=== PATIENT | female | born 1960 | race Caucasian/White ===

== ENCOUNTER 2021-06-25 14:00 | Day surgery (SDC) | payer BC ==
[~2021-06-25] VITALS: Ht 167.6 cm; Wt 80.4 kg
[2021-06-25] VITALS (7 sets, daily range): BP systolic 98–136; BP diastolic 51–75
[2021-06-25] MEDS ORDERED: diphenhydrAMINE 25mg capsule PO PRN (14:25)
[2021-06-25] MEDS ORDERED: normal saline 1,000 ML IV SCH (14:25)
[2021-06-25] MEDS ORDERED: LORazepam 0.5 MG tablet PO PRN (14:25)
[2021-06-25] MEDS ORDERED: SITA100T11 PO (14:35)
[2021-06-25] MEDS ORDERED: INSU100I31 (14:35)
[2021-06-25] MEDS ORDERED: CLOP75TA15 PO (14:35)
[2021-06-25] MEDS ORDERED: IBUP-2697 PO (14:35)
[2021-06-25] MEDS ORDERED: METF-438 PO (14:35)
[2021-06-25] MEDS ORDERED: ATOR80TA PO (14:35)
[2021-06-25] MEDS ORDERED: LISI-643 PO (14:35)
[2021-06-25] MEDS ORDERED: fentaNYL/PF 50MCG/1 ML 2ML syringe ONE (15:46)
[2021-06-25] MEDS ORDERED: LIDOcaine 1% (10mg/ml)w/preservative inj. 20ml MDV ONE (15:46)
[2021-06-25] MEDS ORDERED: heparin 1,000unit/ml 10ml vial 10 ML ONE (15:46)
[2021-06-25] MEDS ORDERED: midazolam 1 mg/ML 2ml injection ONE ×2 (15:46→17:36)
[2021-06-25] MEDS ORDERED: iohexol 350MG/ML 100ml bottle IV ONE ×2 (15:47→17:37)
[2021-06-25] MEDS ORDERED: heparin 1,000 UNITS/NS 500ml 500 ML ONE (15:47)
[2021-06-25] MEDS ORDERED: aspirin 325mg tablet ONE (18:36)
[2021-06-25] MEDS ORDERED: OXAZEpam 15mg capsule PO PRN (19:15)
[2021-06-25] MEDS ORDERED: HYDROcodone/acetaminophen 10/325mg tab PO PRN (19:15)
[2021-06-25] MEDS ORDERED: ondansetron/PF 4mg/2ml inj IV PRN (19:15)
[2021-06-25] MEDS ORDERED: proCHLORperazine 10 MG/2 ml inj IV PRN (19:15)
[2021-06-25] MEDS ORDERED: HYDROcodone/acetaminophen 5mg/325mg tablet PO PRN (19:15)
== END 2021-06-25 21:00 | disposition home or self-care (01) ==
LOC: SSTAY O 14:00
PROVIDERS: ATTEND Internal Medicine Interventional Cardiology
DX: E11.51 Type 2 diabetes mellitus with diabetic peripheral angiopathy without gangrene (principal); I70.211 Atherosclerosis of native arteries of extremities with intermittent claudication, right leg; I10 Essential (primary) hypertension; E78.5 Hyperlipidemia, unspecified; F17.290 Nicotine dependence, other tobacco product, uncomplicated; Z88.7 Allergy status to serum and vaccine; Z79.84 Long term (current) use of oral hypoglycemic drugs; Z79.01 Long term (current) use of anticoagulants; Z79.899 Other long term (current) drug therapy
CPT/HCPCS: 37221; 75625; 75710; 93005; 99152; 99153; C1725; C1751; C1769; C1876; C1887; C1894; J1644; J2250; J3010; J3490; Q0163; Q9967; 36140; A4620; A6449

== ENCOUNTER 2025-03-23 09:42 | Observation (INO) | payer BC ==
[2025-03-23] VITALS (12 sets, daily range): BP systolic 93–148; BP diastolic 60–77; PULSE 81–102; RESP 8–24; TEMP 98.2–98.9; O2SAT 94–100
[~2025-03-23] VITALS: Ht 167.6 cm; Wt 77.0 kg
[~2025-03-23 09:42] MED LIST: ATOR-429 PO; CLOP75TA15 PO; IBUP-2697 PO; INSU100I31; LISI-643 PO; METF-438 PO; SITA100T11 PO
[2025-03-23] MEDS ORDERED: GABA300C PO (10:22)
[2025-03-23] MEDS ORDERED: SEMA2PEN INJ (10:22)
[2025-03-23] MEDS ORDERED: ASPI81TA52 PO (10:23)
[2025-03-23] MEDS ORDERED: DAPA10TA PO (10:24)
--- NOTE | 2025-03-23 10:33 | ELECTROCARDIOGRAPH REPORT ---
[facility] Test Date: 2025-03-23 Test Time: 10:31:30 Pat Name: RHONA COCHRAN Department: [facility] Patient ID: [facility]-[id number] Room: Gender: F Svp Of Digital: RAYSHAWN : 1960 Requested By: DARINEL TORREZ Order Number: [id number] Reading MD: Dr. Tigre Yuen Measurements Intervals [place] Rate: 80 P: 59 [place]: 141 QRS: 79 QRSD: 99 T: 60 QT: 372 QTc: 430 Interpretive Statements Sinus rhythm Electronically Signed On 03-23-2025 16:31:[address] Tigre Yuen Please click the below link to view image of tracing.
[2025-03-23] MEDS ORDERED: glucagon, human recombinant 1mg kit SUBCUT PRN (10:40)
[2025-03-23] MEDS ORDERED: dextrose 50%-water 50ml dispensing syringe IV PRN ×2 (10:40)
[2025-03-23] MEDS ORDERED: DEXTROSE 15 GM of carb/4 tabs (each vial/BOTTLE has 4 tablets) PO PRN ×2 (10:40)
[2025-03-23] MEDS ORDERED: normal saline 1000ml 1,000 ML IV SCH (11:05)
--- NOTE | 2025-03-23 11:22 | RADIOLOGY REPORT ---
CLINICAL INFORMATION: PREOP HEART CATH. TECHNIQUE: Frontal and lateral chest radiographs were obtained. COMPARISON: None FINDINGS: Lungs: Mild atelectasis in the lung bases. No focal consolidation. No pneumothorax or pleural effusion. Cardiac: Heart size is within normal limits. Pulmonary vasculature: Unremarkable Mediastinum/lyn: Within normal limits. Bones: No evidence of acute osseous abnormality. Other: No other significant finding. IMPRESSION: No evidence of acute disease in the chest.
[2025-03-23] MEDS ORDERED: iohexol 350 MG/ML 50ML vial IV ONE (12:43)
[2025-03-23] MEDS ORDERED: verapamil 2.5 mg/ml inj IV ONE (12:43)
[2025-03-23] MEDS ORDERED: LIDOcaine 1% 30ml preserv. free vial ONE (12:43)
[2025-03-23] MEDS ORDERED: fentaNYL/PF 50MCG/1 ML 2ML syringe ONE (12:43)
[2025-03-23] MEDS ORDERED: heparin 1,000unit/ml 10ml vial 10 ML ONE (12:43)
[2025-03-23] MEDS ORDERED: midazolam 1 mg/ML 2ml injection ONE (12:43)
[2025-03-23] MEDS ORDERED: nitroGLYCERIN 500mcg/5mL D5W 5 ML IV ONE (12:49)
[2025-03-23 13:46] LABS: MEAN PLATELET VOLUME 7.9 FL (7.4-10.4); RED CELL DISTRIBUTION WIDTH 13.6 % (11.5-14.5)
[2025-03-23 14:39] LABS: APTT 25 SECONDS (22-32); INR 1.0 INR
[2025-03-23 15:02] LABS: CREATININE 0.93 MG/DL (0.40-0.90); PRO BRAIN NATRIURETIC PEPTIDE 36 PG/ML (0-125); TOTAL CARBON DIOXIDE 29.5 MMOL/L (24-32); eCRCL 57 ML/MIN; eGFR 61 ML/MIN
[2025-03-23] MEDS ORDERED: ondansetron/PF 4mg/2ml inj IV PRN (16:45)
[2025-03-23] MEDS: normal saline 1000ml 1,000 ML IV SCH (16:45)
[2025-03-23] MEDS ORDERED: HYDROcodone/acetaminophen 5mg/325mg tablet PO PRN (16:50)
[2025-03-23] MEDS ORDERED: HYDROcodone/acetaminophen 10/325mg tab PO PRN (16:50)
[2025-03-23] MEDS ORDERED: OXAZEpam 15mg capsule PO PRN (16:50)
[2025-03-23] MEDS: INSULIN LISPRO 100 UNIT/ML INSULN.PEN MULTI-DOSE SQ SCH (22:03)
[2025-03-24 02:00] VITALS: BP 121/69; PULSE 93; RESP 19; TEMP 98.9; O2SAT 98
--- NOTE | 2025-03-24 02:26 | CARDIOLOGY REPORT ---
DATE OF SERVICE: 03/23/2025 DICTATING PHYSICIAN: Priyank Paredes MD PROCEDURES: * Left heart catheterization. * Left ventriculography. * Selective left and right coronary arteriography. * Right radial artery 5-Ghanaian sheath insertion for procedure. BRIEF HISTORY/INDICATION: A 64-year-old female has recurrent exertional and nonexertional right sternal pain with radiation up into her neck and jaw. She had a nuclear stress test with inferior wall partially fixed and reversible ischemia. No angina pectoris. She was being evaluated preoperatively for abdominal hernia repair. She has underlying non-insulin diabetes mellitus and hypertension. General care is at [facility]. Production Trainer is Dr. Hakeem Carlson. Risks, benefits, and alternatives of diagnostic heart catheterization were discussed with her with a radial approach as it would be preferable not to puncture the aortobifem grafts. The risks include but are not restricted to , stroke, myocardial infarction, renal failure, neurologic, vascular complication, bleeding complications, allergic reaction, potential and irreversible damage loss. She decided to proceed. TECHNIQUE: Following usual sterile preparation and draping, the right wrist was infiltrated with 1 mL of 1% lidocaine local anesthetic. By palpation, a 21-gauge needle was used to access the right radial artery, wire was placed. A 5-Ghanaian sheath was placed followed by 200 mcg nitroglycerin, 2.5 mg verapamil, 5000 units of heparin diluted to 10 mL injected into the right radial artery. 2 mg Versed and 7.75 mcg of fentanyl was required for conscious sedation. She was maintained on oxygen 2 liters per minute. Selective left and right coronary arteriography. Left arteriography with runoff into the ascending, descending aorta, and visualizing her aortic bypass grafts were performed with 6-Ghanaian femoral left 4, right 4 Nestor-shaped catheters and 6-Ghanaian straight pigtail catheter. Catheter exchanges were under fluoroscopic guidance with J-tip guidewire lead. At termination, right radial sheath was removed and hemostasis was obtained with a radial compression device. Pulse was intact post procedure. There were no complications. 70 mL of Omnipaque 350 contrast was administered. Fluoroscopy time was 6.3 minutes. Radiation exposure was 5,305 cm/cm2. FINDINGS: Five feet six inches, 170 pounds, AO 151/73, LV 151/5-22. Left ventricular ejection fraction 70%. Runoff into the aorta shows completely obstructed aorta infrarenally. Patent smooth aortobifem graft. There is a short left main coronary artery, smooth. Left anterior descending has serial mid 40% and 30% narrowings at the level of the second septal, anterior descending wraps around the apex of the myocardium. The first and second diagonals originate between the first and second septal 1.5-mm smooth vessels. The left circumflex provides a large obtuse marginal that reaches the apex and a small mid left circumflex. The mid portion of the large obtuse marginal has bridging in diastole. It appears at the most severe 20% narrowed, during systole 80%. Right coronary has scattered proximal to mid 30% narrowing extending to the acute marginal level. Posterior descending is 1.5 mm in diameter. Posterolateral branches are 0.5 mm and less than 1 mm. There is a long, smooth, 1.5-mm right ventricular branch. RESULTS: * Normal left ventricular ejection fraction of 70%. * Completely obstructed infrarenal aorta, patent aortobifem graft, smooth. * Short smooth left main coronary artery. * Serial 40% and 30% mid left anterior descending narrowing. 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 * Right coronary has proximal to mid serial scattered 30% narrowing, posterior descending 1.5 mm, posterolateral branches 1 mm or less in diameter. COMMENT: The patient's inferior wall ischemia is explicable by small vessel distal right coronary artery disease. There is no evidence of ischemia in lateral distribution from the systolic obtuse marginal bridging. There is no cardiac contraindication to proceed with surgery as is needed. Priyank Paredes MD TID: [id number] RECEIPT: [id number] TR/PRA cc: Hakeem Carlson MD, [facility]
[2025-03-24 06:00] VITALS: BP 108/62; PULSE 88; RESP 17; TEMP 97.4; O2SAT 96
[2025-03-24 08:00] VITALS: RESP 16; O2SAT 96
[2025-03-24 08:11] VITALS: BP_SYST 108; PULSE 88
[2025-03-24] MEDS: aspirin 81mg, enteric-coated 1 TAB TABLET.DR PO SCH (08:11)
[2025-03-24] MEDS: EMPAGLIFLOZIN 25 MG TABLET PO SCH (08:11)
[2025-03-30] MEDS ORDERED: Semaglutide (Ozempic) 2 MG SQ SCH (08:00)
== END 2025-03-24 11:11 | disposition home or self-care (01) ==
LOC: SSTAY O 09:42 → PCU 3S 16:41
PROVIDERS: ADMIT Internal Medicine Cardiovascular Disease; ATTEND Internal Medicine Cardiovascular Disease
DX: R94.39 Abnormal result of other cardiovascular function study (principal); E11.9 Type 2 diabetes mellitus without complications; I10 Essential (primary) hypertension; R60.1 Generalized edema; Z79.899 Other long term (current) drug therapy; Z98.890 Other specified postprocedural states
CPT/HCPCS: 36415; 71046; 80048; 82948; 83880; 84484; 85025; 85610; 85730; 93005; 93458; G0378; J1644; J1815; J2003; J2250; J3010; J3490; J7030; Q0163; Q9967; 99152; 99153; A6258; A6402; C1894